=== PATIENT | male | born 1955 ===

== ENCOUNTER 2022-12-27 08:13 | Emergency (ER) | payer MEDICAID ==
[~2022-12-27] VITALS: Ht 162.6 cm; Wt 65.0 kg
[2022-12-27 08:44] VITALS: BP 132/96
[2022-12-27] MEDS ORDERED: SELE120S3 TOP (09:48)
[2022-12-27] MEDS ORDERED: FLUC100T25 PO (09:48)
== END 2022-12-27 10:13 | disposition home or self-care (01) ==
LOC: ER 08:14
DX: B35.0 Tinea barbae and tinea capitis (principal)
CPT/HCPCS: 99283

== ENCOUNTER 2023-01-17 11:11 | Emergency (ER) | payer MEDICAID ==
[~2023-01-17] VITALS: Ht 162.6 cm; Wt 68.0 kg
[~2023-01-17 11:11] MED LIST: FLUC100T25 PO; SELE120S3 TOP
[2023-01-17 11:21] VITALS: BP 147/89
[2023-01-17] MEDS ORDERED: BETA15CR4 TOP (13:17)
== END 2023-01-17 17:01 | disposition home or self-care (01) ==
LOC: ER 11:11
DX: L40.9 Psoriasis, unspecified (principal); B35.0 Tinea barbae and tinea capitis; Z79.899 Other long term (current) drug therapy
CPT/HCPCS: 99283